=== PATIENT | female | born 1990 | race Caucasian/White ===

== ENCOUNTER → 2019-02-25 | Outpatient (CLI) | payer SELFPAY ==
[~2019-02-25] MED LIST: ATOM40; BUSP5 PO; CEPH500 PO; CETI5; CIPRSO OD; CODACE30 PO; CYCL10 PO; FAMO20 PO; HYDACE5 PO; IBUP200; LOPE2C PO; MEDR150I; MUPI2TO TOP; NITR100CA PO; OMEP20ER PO; ONDA4ODT MM; OXYACE5T PO; PROM25 PO; Patanol5 ML BOTHEYES; RXCODACET PO; RXHYDACE PO; RXOXYACE PO; RXPROM25 PO; RXTRAM50 PO; TRAM50 PO; [UNRECOGNIZED DRUG - CODE]; [UNRECOGNIZED DRUG - REMARK]
[2019-02-28 16:06] LABS: CHLAMYDIA TRACHOMATIS, NAA Negative (Negative); NEISSERIA GONORRHOEAE, NAA Negative (Negative)
== END | disposition home or self-care (01) ==
LOC: LAB SHORT 11:00 → LAB 11:00
PROVIDERS: Nurse Practitioner Family
DX: Z20.2 Contact with and (suspected) exposure to infections with a predominantly sexual mode of transmission (principal)
CPT/HCPCS: 87491; 87591

== ENCOUNTER 2020-06-09 09:10 | Emergency (ER) | payer OTHER ==
[~2020-06-09] VITALS: Ht 154.9 cm; Wt 70.3 kg
[2020-06-09 10:41] LABS: BASOPHILS ABSOLUTE AUTO 0.15 K/mm3 (0.00-0.23); BASOPHILS PERCENT AUTO 1 % (0-2); EOSINOPHILS ABSOLUTE AUTO 1.32 K/mm3 (0.00-0.68); EOSINOPHILS PERCENT AUTO 9 % (0-6); Hematocrit 44.9 % (33.0-51.0); Hemoglobin 15.7 g/dL (11.5-16.0); IMMATURE GRAN ABSOLUTE AUTO 0.06 K/mm3 (0.00-0.10); IMMATURE GRAN PERCENT AUTO 0 % (0-1); LYMPHOCYTES ABSOLUTE AUTO 2.67 K/mm3 (0.84-5.20); LYMPHOCYTES PERCENT AUTO 19 % (21-46); MONOCYTES ABSOLUTE AUTO 0.72 K/mm3 (0.16-1.47); MONOCYTES PERCENT AUTO 5 % (4-13); Mean Corpuscular HGB 33.1 pg (26.0-34.0); Mean Corpuscular Volume 95 fL (80-100); Mean Platelet Volume 9.9 fL (9.1-12.4); NEUTROPHILS ABSOLUTE AUTO 9.43 K/mm3 (1.96-9.15); NEUTROPHILS PERCENT AUTO 66 % (41-73); Platelet Count 371 K/mm3 (150-400); RDW Coefficient Variation 11.9 % (11.7-14.2); RDW Standard Deviation 41.8 fL (35.1-46.3); Red Blood Cell Count 4.75 M/mm3 (3.80-5.20); White Blood Cell Count 14.35 K/mm3 (4.00-11.30)
[2020-06-09 11:03] LABS: Alanine Aminotransfer (ALT/SGP 37 U/L (12-78); Albumin, Blood 4.3 g/dL (3.4-5.0); Albumin/Globulin Ratio 1.2 (0.8-1.8); Alk Phos 48 U/L (50-136); Anion Gap 5 mmol/L (6-16); Aspartate Aminotrans (AST/SGOT 19 U/L (12-37); Bilirubin, Total 0.5 mg/dL (0.1-1.0); Blood Urea Nitrogen 11 mg/dL (8-24); Bun/Creatinine Ratio 15.4 (12.0-20.0); CO2, Blood 23 mmol/L (21-32); Calcium, Blood 9.1 mg/dL (8.5-10.1); Chloride, Blood 109 mmol/L (98-108); Creatinine, Blood 0.71 mg/dL (0.40-1.00); Globulin, Blood 3.7 g/dL (2.2-4.0); Glomerular Filtration Rate >60 (60-); Glucose, Blood 85 mg/dL (70-99); Potassium, Blood 4.1 mmol/L (3.5-5.5); Sodium, Blood 137 mmol/L (136-145)
[2020-06-09 11:54] LABS: Source, Urine Clean Catch
[2020-06-09 12:09] LABS: Appearance, Urine Clear (Clear); Bilirubin, Urine Neg (Neg); Blood, Urine Neg (Neg); Color, Urine Yellow (P-Yellow); Glucose Qualitative, Urine Neg (Neg); Ketones, Urine Neg (Neg); Leukocyte Esterase, Urine Neg (Neg); Nitrite, Urine Neg (Neg); Protein, Urine Neg (Neg); Urobilinogen, Urine NORM (Normal)
[2020-06-09] MEDS ORDERED: HYDR1TAB94 PO (12:49)
[2020-06-09] MEDS ORDERED: IBUP600 PO (12:49)
== END 2020-06-09 13:03 | disposition home or self-care (01) ==
LOC: ER 09:10
PROVIDERS: Physician Assistant
DX: N83.202 Unspecified ovarian cyst, left side (principal); F17.200 Nicotine dependence, unspecified, uncomplicated; Z88.2 Allergy status to sulfonamides; Z88.1 Allergy status to other antibiotic agents
CPT/HCPCS: 74176; 76830; 76857; 80053; 81003; 81025; 85025; 96361; 96374; 96375; 99284-25; A9270-GY; J1885; J2405; J3010; J7030

== ENCOUNTER 2024-01-15 12:15 | Emergency (ER) | payer OTHER ==
[~2024-01-15] VITALS: Ht 167.6 cm; Wt 104.3 kg
[~2024-01-15 12:15] MED LIST changes: +HYDR1TAB94 PO; +IBUP600 PO
[2024-01-15 12:26] VITALS: BP 133/94
[2024-01-16] MEDS ORDERED: LOSA25 PO (08:55)
== END 2024-01-15 15:29 ==
LOC: ER 12:15
DX: Z53.21 Procedure and treatment not carried out due to patient leaving prior to being seen by health care provider (principal)
CPT/HCPCS: 70450; 99282-25

== ENCOUNTER 2024-01-16 08:40 | Emergency (ER) | payer OTHER ==
[~2024-01-16] VITALS: Ht 154.9 cm; Wt 70.3 kg
[2024-01-16 08:53] VITALS: BP 146/104
[2024-01-16] MEDS ORDERED: LOSA25 PO (08:55)
== END 2024-01-16 09:08 | disposition home or self-care (01) ==
LOC: ER 08:40
DX: G62.9 Polyneuropathy, unspecified (principal); F17.200 Nicotine dependence, unspecified, uncomplicated; Z88.2 Allergy status to sulfonamides; Z88.1 Allergy status to other antibiotic agents; Z79.899 Other long term (current) drug therapy
CPT/HCPCS: 99283

== ENCOUNTER 2024-03-03 08:11 | Inpatient (IN) | payer OTHER ==
[~2024-03-03] VITALS: Ht 152.4 cm; Wt 65.4 kg
[~2024-03-03 08:11] MED LIST changes: +LOSA25 PO
[2024-03-03] MEDS ORDERED: Ketorolac Tromethamine 15mg Vial IV ONE (10:00)
[2024-03-03] MEDS ORDERED: Ondansetron HCl 2 MG / ML 2ML Vial IV ONE (10:00)
[2024-03-03 10:15] LABS: Source, Urine Clean Catch
[2024-03-03 10:20] LABS: Appearance, Urine Cloudy (Clear); Blood, Urine Neg (Neg); Color, Urine Amber (P-Yellow); Glucose Qualitative, Urine Neg (Neg); Ketones, Urine 2+ (Neg); Leukocyte Esterase, Urine 1+ (Neg); Nitrite, Urine Neg (Neg); Protein, Urine 1+ (Neg); Specific Gravity, Urine 1.015 (1.003-1.022); Urobilinogen, Urine 1+ (Normal); pH, Urine 6.5 (5.0-8.0)
[2024-03-03 10:22] LABS: BASOPHILS ABSOLUTE AUTO 0.04 K/mm3 (0.00-0.23); BASOPHILS PERCENT AUTO 0 % (0-2); EOSINOPHILS PERCENT AUTO 3 % (0-6); Hematocrit 47.3 % (33.0-51.0); Hemoglobin 16.3 g/dL (11.5-16.0); IMMATURE GRAN ABSOLUTE AUTO 0.03 K/mm3 (0.00-0.10); IMMATURE GRAN PERCENT AUTO 0 % (0-1); LYMPHOCYTES ABSOLUTE AUTO 1.33 K/mm3 (0.84-5.20); LYMPHOCYTES PERCENT AUTO 14 % (21-46); MONOCYTES ABSOLUTE AUTO 0.56 K/mm3 (0.16-1.47); MONOCYTES PERCENT AUTO 6 % (4-13); Mean Corpuscular HGB 34.2 pg (26.0-34.0); Mean Corpuscular HGB Conc 34.5 g/dL (31.5-36.5); Mean Corpuscular Volume 99 fL (80-100); Mean Platelet Volume 9.6 fL (9.1-12.4); NEUTROPHILS ABSOLUTE AUTO 7.43 K/mm3 (1.96-9.15); NEUTROPHILS PERCENT AUTO 77 % (41-73); Platelet Count 244 K/mm3 (150-400); RDW Coefficient Variation 12.5 % (11.7-14.2); RDW Standard Deviation 45.7 fL (35.1-46.3); Red Blood Cell Count 4.76 M/mm3 (3.80-5.20); White Blood Cell Count 9.69 K/mm3 (4.00-11.30)
[2024-03-03 10:27] LABS: Bilirubin, Urine 1+ (Neg)
[2024-03-03 10:29] LABS: Mucus Heavy (0-Heavy); Squamous Epithelial Cells Many /hpf (Few)
[2024-03-03 10:31] LABS: Calcium Oxalate Crystals Mod /hpf; Red Blood Cells, Urine 0-2 /hpf (0-2)
[2024-03-03 10:32] LABS: Amorphous Heavy (0-Heavy); Bacteria Many /hpf
[2024-03-03] MEDS ORDERED: Metoclopramide HCl 5MG / ML 2ML Vial IV ONE (11:15)
[2024-03-03] MEDS ORDERED: Lactated Ringer's 2,000 ML IV ONE (11:15)
[2024-03-03] MEDS ORDERED: HYDROmorphone HCl/Pf 1MG SYR IV ONE ×2 (11:15→11:55)
[2024-03-03 11:32] LABS: Albumin, Blood 3.3 g/dL (3.4-5.0); Albumin/Globulin Ratio 0.7 (0.8-1.8); Bilirubin, Total 1.1 mg/dL (0.1-1.0); Bun/Creatinine Ratio 11.2 (12.0-20.0); Calcium, Blood 10.5 mg/dL (8.5-10.1); Creatinine, Blood 0.63 mg/dL (0.40-1.00); Globulin, Blood 4.7 g/dL (2.2-4.0); Potassium, Blood 4.2 mmol/L (3.5-5.5)
[2024-03-03] MEDS ORDERED: ALBU90OI INH (12:04)
[2024-03-03] MEDS ORDERED: Lactated Ringer's 1,000 ML IV SCH (13:10)
[2024-03-03] MEDS ORDERED: FLU VACC TS2024-25(6MOS UP)/PF 45 MCG/0.5 ML SYRINGE IM SCH (13:10)
[2024-03-03] MEDS ORDERED: Ondansetron 4 MG SoluTab MM PRN (13:10)
[2024-03-03] MEDS ORDERED: HYDROmorphone HCl/Pf 1MG SYR IV PRN (13:10)
[2024-03-03] MEDS ORDERED: ChlordiazePOXIDE 25 MG Cap PO PRN (13:20)
[2024-03-03] MEDS ORDERED: LORazepam 2 MG/ML 1ML Injection IV PRN (13:20)
[2024-03-03] MEDS ORDERED: Docusate Sodium/Senna 1 Tab PO PRN (13:25)
[2024-03-03] MEDS ORDERED: Albuterol HFA200 ACT/6.7 GM INH INH PRN (13:30)
[2024-03-03] MEDS ORDERED: PredniSONE 20 MG Tab PO SCH (14:00)
[2024-03-03] MEDS ORDERED: Thiamine HCl 100 MG in NS 50 ML IV SCH (15:00)
[2024-03-03] MEDS ORDERED: Folic Acid 1 MG in NS 50 ML IV SCH (15:00)
[2024-03-03] MEDS ORDERED: Ondansetron HCl 2 MG / ML 2ML Vial IV PRN (16:35)
[2024-03-03 18:32] VITALS: BP 136/117
[2024-03-03 19:28] VITALS: BP 141/94
--- NOTE | 2024-03-04 04:12 | NUR ---
Pt A&O x4. VS WNL, IVF running @ 100/hr. Continues to take in clear liquids without increased nausea or pain. Pain was significant at begining of shift but with IVP dilaudid q4 hrs Pt was more comfortable and rested between cares. CWA 7-4-2. Pt did have some muscle cramps in feet and calves, encouraged to ambulate to stretch muscles. Awaiting labs and d/c plan.
[2024-03-04 05:19] VITALS: BP 150/98
[2024-03-04 07:36] VITALS: BP 127/87
[2024-03-04] MEDS ORDERED: NS 250 ML IV PRN (08:05)
[2024-03-04] MEDS ORDERED: Losartan Potassium 25 MG Tab PO SCH (09:00)
[2024-03-04] MEDS ORDERED: Enoxaparin 40 MG/0.4 ML SYR SC SCH (09:00)
[2024-03-04] MEDS ORDERED: DiphenhydrAMINE HCL/Zinc Acet Cream TOP PRN (10:35)
[2024-03-04] MEDS ORDERED: Gabapentin 300 MG Cap PO SCH ×2 (15:00→18:00)
[2024-03-04 16:46] VITALS: BP 142/94
--- NOTE | 2024-03-04 17:42 | NUR ---
SHIFT SUMMARY PT A&OX4, VSS, AMB IND, TOLERATING PO, VOIDING, AND PAIN MANAGED PER EMAR. LR INFUSING PER ORDER. PT HAD 1 EMESIS THIS SHIFT THAT WAS MEDICATED PER EMAR. NO OTHER ACUTE CHANGES. CALL LIGHT WITHIN REACH AND PT ABLE TO MAKE NEEDS KNOWN.
[2024-03-04 19:25] VITALS: BP 129/91
--- NOTE | 2024-03-05 01:41 | NUR ---
PT RPORTS SHE IS SEEING "PEOPLE IN HER ROOM" AND IS "HEARING VOICES." PT REPORTS I "AM FREAKING OUT." I JUST DID A CIWA 20 MINUTES AGO, HOWEVER ASSESSMENT FINDINGS CHANGED PER ABOVE AND NEW ASSESSMENT. WILL MEDICATE WITH LIBRIUM.
[2024-03-05 03:09] VITALS: BP 104/63
[2024-03-05 05:42] LABS: BASOPHILS ABSOLUTE AUTO 0.02 K/mm3 (0.00-0.23); BASOPHILS PERCENT AUTO 0 % (0-2); EOSINOPHILS ABSOLUTE AUTO 0.18 K/mm3 (0.00-0.68); EOSINOPHILS PERCENT AUTO 2 % (0-6); Hematocrit 39.2 % (33.0-51.0); Hemoglobin 13.2 g/dL (11.5-16.0); IMMATURE GRAN ABSOLUTE AUTO 0.03 K/mm3 (0.00-0.10); IMMATURE GRAN PERCENT AUTO 0 % (0-1); LYMPHOCYTES ABSOLUTE AUTO 2.53 K/mm3 (0.84-5.20); LYMPHOCYTES PERCENT AUTO 31 % (21-46); MONOCYTES ABSOLUTE AUTO 0.62 K/mm3 (0.16-1.47); MONOCYTES PERCENT AUTO 8 % (4-13); Mean Corpuscular HGB 34.1 pg (26.0-34.0); Mean Corpuscular HGB Conc 33.7 g/dL (31.5-36.5); Mean Corpuscular Volume 101 fL (80-100); Mean Platelet Volume 10.7 fL (9.1-12.4); NEUTROPHILS ABSOLUTE AUTO 4.88 K/mm3 (1.96-9.15); NEUTROPHILS PERCENT AUTO 59 % (41-73); Platelet Count 151 K/mm3 (150-400); RDW Coefficient Variation 12.7 % (11.7-14.2); RDW Standard Deviation 47.1 fL (35.1-46.3); Red Blood Cell Count 3.87 M/mm3 (3.80-5.20); White Blood Cell Count 8.26 K/mm3 (4.00-11.30)
--- NOTE | 2024-03-05 06:00 | NUR ---
SHIFT SUMMARY - PT CONTINUES WITH A DIFFUSE SCATTERED RASH. PT MEDICATED WITH LIBRIUM X1 - PT HAVING AUDITORY/VISUAL HALLUCATIONS - SEE CIWA FOR ASSESSMENT FINDINGS. PT UP AMBULATING IN THE HALLS AT THE BEGINNING OF THE SHIFT, AND HAS BEEN INDEPENDENT TO [facility]. PT DENIED ANY NAUSEA OR VOMITING. IV FLUIDS INFUSING WITHOUT DIFFICULTY. CALL LIGHT WITHIN REACH. BED IN LOW POSITION. FLUIDS AT BEDSIDE. PT SLEPT FOR SEVERAL HOURS THIS AM.
[2024-03-05 06:12] LABS: Albumin, Blood 2.8 g/dL (3.4-5.0); Albumin/Globulin Ratio 0.8 (0.8-1.8); Bilirubin, Total 0.5 mg/dL (0.1-1.0); Bun/Creatinine Ratio 6.8 (12.0-20.0); Calcium, Blood 9.4 mg/dL (8.5-10.1); Creatinine, Blood 0.44 mg/dL (0.40-1.00); Globulin, Blood 3.5 g/dL (2.2-4.0); Total Protein, Blood 6.3 g/dL (6.4-8.2)
[2024-03-05 07:13] VITALS: BP 109/77
[2024-03-05] MEDS ORDERED: OxyCODONE HCL 5 MG TAB PO PRN (10:45)
[2024-03-05] MEDS ORDERED: Acetaminophen 325 MG TABLET PO PRN (10:50)
[2024-03-05] MEDS ORDERED: Melatonin 5 MG Tablet PO PRN (10:50)
--- NOTE | 2024-03-05 12:41 | NUR ---
1130: PT EXPRESSED DESIRE TO "GET SOME FRESH AIR". THIS RN INFORMED PT THAT SHE WAS "NOT BEING HELD AGAINST YOUR WILL HERE. THIS IS NOT A [facility]." CONSULTED WITH CHARGE NURSE, INFORMED THIS RN IF PT DOES NOT RETURN TO ROOM IN 1 HOUR, PT WOULD BE DISCHARGE AMA. PT INFORMED OF THIS DECISION, AND AGREED WITH IT. WILL CONTINUE TO MONITOR.
[2024-03-05 15:34] VITALS: BP 124/78
--- NOTE | 2024-03-05 16:31 | NUR ---
SHIFT SUMMARY PT AOX4, COOPERATIVE, ABLE TO MAKE NEEDS KNOWN. WAS RUNNING LR 150ML THIS MORNING, WAS DC'D. PT DID EXPRESS ANXIETY ABOUT BEING INSIDE ALL DAY, AND WANTING TO GO OUTSIDE. THIS RN TALKED WITH CHARGE NURSE, INFORMED PT IF PT WAS NOT BACK IN 1 HOUR, PT WOULD BE DISCHARGED AMA, PT AGREED. PT DID FALL ASLEEP AFTER FIRST "WALK OUT" WITH BOOK OPEN IN HAND. CHEST WAS MOVING UP AND DOWN. PT HAS BEEN IND IN ROOM, ADVANCED TO REGULAR DIET. TOLERATING PO INTAKE WELL. CALL LIGHT WITHIN REACH, BED IN LOWEST POSITION.
[2024-03-05 19:22] VITALS: BP 103/87
[2024-03-05] MEDS ORDERED: FentaNYL Citrate 50 MCG/ML 2 ML Injection IV PRN (19:45)
[2024-03-06 05:58] LABS: BASOPHILS ABSOLUTE AUTO 0.03 K/mm3 (0.00-0.23); BASOPHILS PERCENT AUTO 0 % (0-2); EOSINOPHILS ABSOLUTE AUTO 0.11 K/mm3 (0.00-0.68); EOSINOPHILS PERCENT AUTO 1 % (0-6); Hematocrit 37.6 % (33.0-51.0); Hemoglobin 12.7 g/dL (11.5-16.0); IMMATURE GRAN ABSOLUTE AUTO 0.04 K/mm3 (0.00-0.10); IMMATURE GRAN PERCENT AUTO 0 % (0-1); LYMPHOCYTES ABSOLUTE AUTO 2.26 K/mm3 (0.84-5.20); LYMPHOCYTES PERCENT AUTO 24 % (21-46); MONOCYTES ABSOLUTE AUTO 0.68 K/mm3 (0.16-1.47); MONOCYTES PERCENT AUTO 7 % (4-13); Mean Corpuscular HGB 34.3 pg (26.0-34.0); Mean Corpuscular HGB Conc 33.8 g/dL (31.5-36.5); Mean Corpuscular Volume 102 fL (80-100); Mean Platelet Volume 11.1 fL (9.1-12.4); NEUTROPHILS PERCENT AUTO 67 % (41-73); Platelet Count 135 K/mm3 (150-400); RDW Coefficient Variation 12.7 % (11.7-14.2); RDW Standard Deviation 47.1 fL (35.1-46.3); White Blood Cell Count 9.32 K/mm3 (4.00-11.30)
[2024-03-06 06:22] LABS: Albumin, Blood 2.5 g/dL (3.4-5.0); Albumin/Globulin Ratio 0.7 (0.8-1.8); Bilirubin, Total 0.5 mg/dL (0.1-1.0); Bun/Creatinine Ratio 8.2 (12.0-20.0); Calcium, Blood 8.8 mg/dL (8.5-10.1); Creatinine, Blood 0.49 mg/dL (0.40-1.00); Globulin, Blood 3.4 g/dL (2.2-4.0); Potassium, Blood 3.8 mmol/L (3.5-5.5); Total Protein, Blood 5.9 g/dL (6.4-8.2)
--- NOTE | 2024-03-06 07:14 | NUR ---
ASSUMED CARE OF PT. LOOKED AT CHARTING AND APPEARS NIGHT NURSE DID NOT CHART ALCOHOL WITHDRAWAL ASSESSMENT 3 TIMES DURING THE DIVIDEND DEPOSIT ENTRY CLERK.
[2024-03-06 07:16] VITALS: BP 108/79
[2024-03-06] MEDS ORDERED: ACET325 PO (13:05)
[2024-03-06] MEDS ORDERED: Benadryl Itch28.3 G1 TOP (13:08)
[2024-03-06] MEDS ORDERED: FOLI1 PO (13:09)
[2024-03-06] MEDS ORDERED: GABA300 PO (13:12)
[2024-03-06] MEDS ORDERED: OXYC5 PO (13:13)
[2024-03-06] MEDS ORDERED: Prednisone10 MG PO (13:15)
[2024-03-06] MEDS ORDERED: B-1100 M1 PO (13:16)
[2024-03-06] MEDS ORDERED: MELATONIN5 M1 PO (13:21)
--- NOTE | 2024-03-06 14:41 | NUR ---
DISCHARGE 1340 PT DC'D, CARRIED BELONGING IN HAND DOWN TO PT CAR. HARD SCRIPT FOR OXY WAS CARRIED IN DISCHARGE PAPERWORK BY PT. IV WAS DC'D BY THIS RN WITHOUT INJURY. THIS RN WENT OVER DC PAPERWORK WITH PT. THIS RN ASKED PT 3 TIMES IF THEY WOULD LIKE A WHEELCHAIR TRANPORT TO THE PT ENTRANCE, PT REFUSED ALL 3 TIMES. NEW MEDS FAXED TO [facility].
== END 2024-03-06 14:37 | disposition home or self-care (01) | DRG 439 ==
LOC: ER 08:11 → MEDS 13:05 → ERHOLD 13:05 → MEDS 18:29
PROVIDERS: Physician Assistant; ADMIT Family Medicine
DX: K85.20 Alcohol induced acute pancreatitis without necrosis or infection (principal); F10.230 Alcohol dependence with withdrawal, uncomplicated; I10 Essential (primary) hypertension; F17.210 Nicotine dependence, cigarettes, uncomplicated; E86.0 Dehydration; L30.9 Dermatitis, unspecified; K76.0 Fatty (change of) liver, not elsewhere classified; Z88.2 Allergy status to sulfonamides; Z88.8 Allergy status to other drugs, medicaments and biological substances; Z79.899 Other long term (current) drug therapy
CPT/HCPCS: 36415; 74177; 80053; 81001; 81025; 83690; 85025; 87086; 94760; 96361; 96374-59; 96375; 99285-25; A9270; J1171; J1650; J1885; J2060; J2405; J2765; J3010; J3411; J7050; J7120; J7512; Q9967

== ENCOUNTER 2024-05-27 14:22 | Emergency (ER) | payer OTHER ==
[~2024-05-27] VITALS: Ht 154.9 cm; Wt 65.8 kg
[~2024-05-27 14:22] MED LIST changes: +ACET325 PO; +ALBU90OI INH; +B-1100 M1 PO; +Benadryl Itch28.3 G1 TOP; +FOLI1 PO; +GABA300 PO; +MELATONIN5 M1 PO; +OXYC5 PO; +Prednisone10 MG PO
[2024-05-27] MEDS ORDERED: NS 1,000 ML IV SCH (14:40)
[2024-05-27] MEDS ORDERED: Ondansetron HCl 2 MG / ML 2ML Vial IV ONE (14:40)
[2024-05-27] MEDS ORDERED: Ketorolac Tromethamine 15mg Vial IV ONE (14:40)
[2024-05-27 14:55] LABS: BASOPHILS ABSOLUTE AUTO 0.09 K/mm3 (0.00-0.23); BASOPHILS PERCENT AUTO 2 % (0-2); EOSINOPHILS ABSOLUTE AUTO 0.44 K/mm3 (0.00-0.68); EOSINOPHILS PERCENT AUTO 8 % (0-6); Hematocrit 42.5 % (33.0-51.0); Hemoglobin 14.7 g/dL (11.5-16.0); IMMATURE GRAN ABSOLUTE AUTO 0.03 K/mm3 (0.00-0.10); IMMATURE GRAN PERCENT AUTO 1 % (0-1); LYMPHOCYTES ABSOLUTE AUTO 1.34 K/mm3 (0.84-5.20); LYMPHOCYTES PERCENT AUTO 23 % (21-46); MONOCYTES ABSOLUTE AUTO 0.62 K/mm3 (0.16-1.47); MONOCYTES PERCENT AUTO 11 % (4-13); Mean Corpuscular HGB 33.9 pg (26.0-34.0); Mean Corpuscular HGB Conc 34.6 g/dL (31.5-36.5); Mean Corpuscular Volume 98 fL (80-100); Mean Platelet Volume 9.6 fL (9.1-12.4); NEUTROPHILS PERCENT AUTO 57 % (41-73); Platelet Count 206 K/mm3 (150-400); RDW Coefficient Variation 13.6 % (11.7-14.2); RDW Standard Deviation 49.1 fL (35.1-46.3); Red Blood Cell Count 4.34 M/mm3 (3.80-5.20); White Blood Cell Count 5.82 K/mm3 (4.00-11.30)
[2024-05-27 15:19] LABS: Albumin, Blood 3.4 g/dL (3.4-5.0); Albumin/Globulin Ratio 0.9 (0.8-1.8); Bilirubin, Total 0.5 mg/dL (0.1-1.0); Bun/Creatinine Ratio 11.2 (12.0-20.0); Calcium, Blood 8.8 mg/dL (8.5-10.1); Creatinine, Blood 0.53 mg/dL (0.40-1.00); Globulin, Blood 3.6 g/dL (2.2-4.0); Magnesium, Blood 1.3 mg/dL (1.6-2.4); Potassium, Blood 3.5 mmol/L (3.5-5.5)
[2024-05-27] MEDS ORDERED: PHENobarbitaL sodium 130 MG/ML VIAL IV ONE (18:25)
[2024-05-27 20:00] VITALS: BP 147/106
== END 2024-05-27 20:20 | disposition home or self-care (01) ==
LOC: ER 14:22
PROVIDERS: Student in an Organized Health Care Education/Training Program
DX: R56.9 Unspecified convulsions (principal); F10.239 Alcohol dependence with withdrawal, unspecified; F17.210 Nicotine dependence, cigarettes, uncomplicated; I10 Essential (primary) hypertension; Z79.52 Long term (current) use of systemic steroids; Z79.899 Other long term (current) drug therapy; Z88.2 Allergy status to sulfonamides; Z88.8 Allergy status to other drugs, medicaments and biological substances
CPT/HCPCS: 74177; 80053; 83605; 83690; 83735; 85025; 93005; 93010; 96361; 96374-59; 96375; 99285-25; J1885; J2405; J2560; J7030; Q9967

== ENCOUNTER 2024-10-15 16:41 | Emergency (ER) | payer OTHER ==
[~2024-10-15] VITALS: Ht 154.9 cm; Wt 59.0 kg
[2024-10-15] MEDS ORDERED: FentaNYL Citrate 50 MCG/ML 2 ML Injection IV ONE (17:00)
[2024-10-15 17:10] LABS: BASOPHILS ABSOLUTE AUTO 0.15 K/mm3 (0.00-0.23); BASOPHILS PERCENT AUTO 1 % (0-2); EOSINOPHILS ABSOLUTE AUTO 0.89 K/mm3 (0.00-0.68); EOSINOPHILS PERCENT AUTO 7 % (0-6); Hematocrit 41.8 % (33.0-51.0); Hemoglobin 14.5 g/dL (11.5-16.0); IMMATURE GRAN ABSOLUTE AUTO 0.04 K/mm3 (0.00-0.10); IMMATURE GRAN PERCENT AUTO 0 % (0-1); LYMPHOCYTES ABSOLUTE AUTO 3.79 K/mm3 (0.84-5.20); LYMPHOCYTES PERCENT AUTO 28 % (21-46); MONOCYTES ABSOLUTE AUTO 1.03 K/mm3 (0.16-1.47); MONOCYTES PERCENT AUTO 8 % (4-13); Mean Corpuscular HGB Conc 34.7 g/dL (31.5-36.5); Mean Corpuscular Volume 104 fL (80-100); NEUTROPHILS ABSOLUTE AUTO 7.86 K/mm3 (1.96-9.15); NEUTROPHILS PERCENT AUTO 57 % (41-73); NRBC ABSOLUTE 0.00 K/mm3 (0.00-0.02); NRBC Auto 0.0 /100 WBC (0.0-0.2); Platelet Count 277 K/mm3 (150-400); RDW Coefficient Variation 12.3 % (11.7-14.2); RDW Standard Deviation 47.6 fL (35.1-46.3)
[2024-10-15 17:27] LABS: Alanine Aminotransfer (ALT/SGP 33.0 U/L (12-78); Albumin, Blood 3.6 g/dL (3.4-5.0); Albumin/Globulin Ratio 0.9 (0.8-1.8); Anion Gap 24.0 mmol/L (3-11); Aspartate Aminotrans (AST/SGOT 121.0 U/L (12-37); Bilirubin, Total 0.9 mg/dL (0.1-1.0); Blood Urea Nitrogen 4.0 mg/dL (8-24); CO2, Blood 14.0 mmol/L (21-32); Calcium, Blood 8.9 mg/dL (8.5-10.1); Chloride, Blood 98.0 mmol/L (98-108); Creatinine, Blood 0.46 mg/dL (0.40-1.00); Globulin, Blood 4.0 g/dL (2.2-4.0); Glucose, Blood 76.0 mg/dL (70-99); Potassium, Blood 3.1 mmol/L (3.5-5.5); Sodium, Blood 133.0 mmol/L (136-145); Total Protein, Blood 7.6 g/dL (6.4-8.2)
[2024-10-15] MEDS ORDERED: HYDROmorphone HCl/Pf 1MG SYR IV ONE (17:45)
[2024-10-15] MEDS ORDERED: Prochlorperazine Edisylate 10 mg Vial IV ONE (17:45)
[2024-10-15] MEDS ORDERED: NS 1,000 ML IV SCH (17:45)
[2024-10-15] MEDS ORDERED: Potassium Chl 20MEQ/Water100ML 100 ML IV ONE (18:10)
[2024-10-15 19:01] LABS: Source, Urine Clean Catch
[2024-10-15 19:08] LABS: Bilirubin, Urine Neg (Neg); Glucose Qualitative, Urine Neg (Neg); Ketones, Urine 3+ (Neg); Leukocyte Esterase, Urine Neg (Neg); Protein, Urine 2+ (Neg); Specific Gravity, Urine 1.005 (1.003-1.022); Urobilinogen, Urine NORM (Normal)
[2024-10-15 19:13] LABS: Color, Urine Pale Yellow (P-Yellow)
[2024-10-15 19:15] LABS: White Blood Cells, Urine 0-2 /hpf (0-5)
[2024-10-15] MEDS ORDERED: OXAYDO5 M1 PO (19:57)
[2024-10-15] MEDS ORDERED: DICY20 PO (19:57)
[2024-10-15] MEDS ORDERED: ONDA4ODT MM (19:57)
[2024-10-15 21:09] VITALS: BP 129/78
== END 2024-10-16 00:35 | disposition home or self-care (01) ==
LOC: ER 16:41
PROVIDERS: Student in an Organized Health Care Education/Training Program
DX: R10.31 Right lower quadrant pain (principal); E87.6 Hypokalemia; P74.22 Hyponatremia of newborn; R74.01 Elevation of levels of liver transaminase levels; F17.200 Nicotine dependence, unspecified, uncomplicated; Z79.899 Other long term (current) drug therapy; Z88.2 Allergy status to sulfonamides; Z88.8 Allergy status to other drugs, medicaments and biological substances
CPT/HCPCS: 74177; 80053; 81001; 83690; 84484; 84703; 85025; 93005; 93010; 96374-59; 96375; 99285-25; J0780; J1171; J3010; J3480; J7030; Q9967